=== PATIENT | female | born 1980 | race American Indian/Alaskan Native ===

== ENCOUNTER 2017-08-31 06:38 | Emergency (ER) | payer MEDICAID ==
--- NOTE | 2017-08-31 08:44 | Emergency Department Report ---
HPI - General Chief Complaint: Psych Time Seen by Provider: 08/31/17 08:17 - HPI HPI: This is a 37 year-old female presents to the emergency department, dropped off by a friend, with complaint of depression and suicidal ideations and questionable attempt. The patient says that she has the plan to cut her wrists and says that she started to do it last night. She shows a very small abrasion to the left volar wrist. She has a diagnosed history of depression and says that she is on antidepressants, but cannot currently remember the name. She says she is not taking it because "they do not work." There is no one particular thing that is causing her to feel depressed currently and it is just more general issues. She denies any homicidal ideation or any hallucinations. She says that she has been to an inpatient psychiatric facility in the past. ED Past Medical Hx - Past Medical History Hx Headaches / Migraines: Yes - Surgical History Hx Appendectomy: Yes Hx Breast Surgery: Yes (reduction) Additional Surgical History: x 3 - Social History Smoking Status: Current Every Day Smoker Substance Use Type: Alcohol - Medications Home Medications: Home Medications Medication Instructions Recorded Confirmed Last Taken Type No Known Home Medications [No 08/11/16 08/11/16 Unknown History Reported Home Medications] ED Review of Systems ROS: Stated complaint: SUICIDE Other details as noted in HPI Comment: All other systems reviewed and negative Constitutional: denies: chills, fever Eyes: denies: eye pain, eye discharge, vision change ENT: denies: ear pain, throat pain Respiratory: denies: cough, shortness of breath, wheezing Cardiovascular: denies: chest pain, palpitations Gastrointestinal: denies: abdominal pain, nausea, diarrhea Genitourinary: denies: urgency, dysuria, discharge Musculoskeletal: denies: back pain, joint swelling, arthralgia Skin: other (small left wrist abrasion). denies: rash, lesions Neurological: denies: headache, weakness, paresthesias Psychiatric: depression, suicidal thoughts. denies: auditory hallucinations, visual hallucinations, homicidal thoughts Physical Exam - Physical Exam Vital Signs: Vital Signs 08/31/17 07:53 Temperature 98.3 F Pulse Rate 91 H Respiratory 18 Rate Blood Pressure 141/90 O2 Sat by Pulse 99 Oximetry Physical Exam: GENERAL: The patient is well-developed well-nourished. HENT: Normocephalic. Atraumatic. Patient has moist mucous membranes. EYES: Extraocular motions are intact. Pupils equal reactive to light bilaterally. NECK: Supple. Trachea is midline. CHEST/LUNGS: Clear to auscultation. There is no respiratory distress noted. HEART/CARDIOVASCULAR: Regular. There is no tachycardia. There is no murmur. ABDOMEN: Abdomen is soft, nontender. Patient has normal bowel sounds. There is no abdominal distention. SKIN: Skin is warm and dry. NEURO: The patient is awake, alert, and oriented. The patient is cooperative. The patient has no focal neurologic deficits. Normal speech. MUSCULOSKELETAL: There is no tenderness or deformity. There is no limitation range of motion. There is no evidence of acute injury. PSYCH: Patient has a flat affect. ED Course Vital Signs 08/31/17 07:53 Temperature 98.3 F Pulse Rate 91 H Respiratory 18 Rate Blood Pressure 141/90 O2 Sat by Pulse 99 Oximetry ED Medical Decision Making - Lab Data Result diagrams: 08/31/17 08:36 08/31/17 08:36 - Medical Decision Making Patient has a blood alcohol level of 0.10 but at this point she will most likely be under legal limit. Rest of blood work has been unremarkable so far. We are waiting for a urinalysis and urine drug screen. Vital signs stable throughout her ED course thus far. Patient has been made a 1013 secondary to her depression and suicidal ideations. If there is any urinary tract infection on the patient were to come back , we will treat appropriately, but I do not feel that this would keep her from being medically cleared for psychiatric placement. - Differential Diagnosis depression, bipolar disorder, schizophrenia, substance abuse Critical Care Time: No Critical care attestation.: If time is entered above; I have spent that time in minutes in the direct care of this critically ill patient, excluding procedure time. ED Disposition Clinical Impression: Suicidal ideations Depression Qualifiers: Depression Type: unspecified Qualified Code(s): F32.9 - Major depressive disorder, single episode, unspecified Disposition: [id number]/TX-[id number] PSY HOSP/PSY UNIT Is pt being admited?: No Condition: Stable Referrals: TRACY ORDOÑEZ MD [Primary Care Provider] - 3-5 Days Time of Disposition: 11:36
[2017-08-31 09:08] LABS: BUN/Creatinine Ratio 4; Blood Urea Nitrogen 4 mg/dL (7-17); Calcium 9.3 mg/dL (8.4-10.2); Hemolysis Index 7
[2017-08-31 09:17] LABS: Basophils # (Auto) 0.1 K/mm3 (0.0-0.1); Basophils % (Auto) 0.9 % (0.0-1.8); Eosinophils # (Auto) 0.2 K/mm3 (0.0-0.4); Eosinophils % (Auto) 1.7 % (0.0-4.3); Hematocrit 40.3 % (30.3-42.9); Hemoglobin 12.6 gm/dl (10.1-14.3); Lymphocytes # (Auto) 4.3 K/mm3 (1.2-5.4); Mean Corpuscular HGB Conc 31 % (30-34); Mean Corpuscular Volume 79 fl (79-97); Monocytes # (Auto) 0.5 K/mm3 (0.0-0.8); Monocytes % (Auto) 5.3 % (0.0-7.3); Platelet Count 422 K/mm3 (140-440); Red Blood Count 5.09 M/mm3 (3.65-5.03)
[2017-08-31 09:18] LABS: Mean Corpuscular Hemoglobin 25 pg (28-32); Red Cell Distribution Width 21.8 % (13.2-15.2)
[2017-08-31 12:58] LABS: Bilirubin,Urine NEG (Negative); Blood,Urine NEG (Negative); Color,Urine Yellow (Yellow); Mucus,Urine 1+ /HPF; Nitrite,Urine NEG (Negative); Protein,Urine <15 mg/dL mg/dL (Negative); Urobilinogen,Urine < 2.0 mg/dL (<2.0)
[2017-08-31 12:59] LABS: HCG Qualitative,Urine Negative (Negative)
[2017-08-31 13:07] LABS: Amphetamine Screen,Urine PRESUMPTIVE NEGATIVE; Benzodiazepines Screen,Urine PRESUMPTIVE NEGATIVE; Cocaine Screen,Urine PRESUMPTIVE NEGATIVE; Methadone Screen,Urine PRESUMPTIVE NEGATIVE; Opiate Screen,Urine PRESUMPTIVE NEGATIVE
[2017-08-31 13:36] LABS: Cannabinoid Screen,Urine PRESUMPTIVE POSITIVE
[2017-09-01] MEDS ORDERED: TYLENOL PO ONE (00:15)
[2017-09-01] MEDS ORDERED: TYLENOL ONE (00:22)
--- NOTE | 2017-09-01 15:01 | Consultation ---
History of Present Illness - Reason for Consult Consult date: 09/01/17 Reason for consult: psychiatric evaluation - Chief Complaint Chief complaint: "I overdid the drinking." - History of Present Psychiatric Illness This is a 37 year-old female presents to the emergency department, dropped off by a friend, with complaint of depression and suicidal ideation and questionable attempt. She reports drinking excessively after a break up. She acknowledges that drinking was a poor decision. Per the ER record , she reported that she had the plan to cut her wrists and says that she started to do it. She currently denies suicidal ideation. She reports being ashamed she had those thoughts. She shows a very small abrasion to the left volar wrist. She has a diagnosed history of depression and says that she was taking celexa 20mg daily. She denies any homicidal ideation or any hallucinations. Medications and Allergies Allergies Allergy/AdvReac Type Severity Reaction Status Date / Time No Known Allergies Allergy Verified 08/11/16 16:53 Home Medications Medication Instructions Recorded Confirmed Last Taken Type No Known Home Medications [No 08/11/16 08/11/16 Unknown History Reported Home Medications] Past psychiatric history - Past Medical History Past Medical History: migraines, other (hard of hearing) Past Surgical History: , Other (breast reduction) - past Psychiatric treatment and history Psych: Depression psychiatric treatment history: She is not taking celexa x 2 weeks. She thought it was affecting her sleep. 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 - Social History Social history: other (she denies regular alcohol use. She denies illicit substance use.) Mental Status Exam - Vital signs Last Vital Signs Temp 99.0 F 08/31/17 19:05 Pulse 82 08/31/17 19:05 Resp 18 08/31/17 19:05 BP 104/71 08/31/17 19:05 Pulse Ox 98 08/31/17 19:05 - Exam Orientation: time, place, person Affect: depressed Mood: congruent with affect Thought content: other (denies suicidal or homicidal ideation) Thought Process: Intact Perceptions: none Speech: normal rate and pattern Concentration: focused Motor activity: normal Level of consciousness: alert Memory: Intact Sleep Symptoms: Difficulty Falling Asleep Appetite: decreased Interaction: cooperative Results Result Diagrams: 08/31/17 08:36 08/31/17 08:36 All other labs normal. Assessment and Plan Assessment and plan: Impression: major depressive disorder r/o alcohol use disorder r/o bipolar She denies current suicidal ideation. No withdrawal symptoms Recommendation: Attempts to reach her mother were unsuccessful. [phone] Hold off on restarting celexa. She is concerned about taking it and working. Reevaluate in 24 hours to determine suicide risk. Her initial presentation was likely influenced by the acute stressor of a break up and alcohol.
[2017-09-03 00:22] VITALS: BP 121/70
== END 2017-09-02 23:45 ==
LOC: EEVIPCON 06:38 → ED 06:38
DX: F32.9 Major depressive disorder, single episode, unspecified (principal); R45.851 Suicidal ideations; G43.909 Migraine, unspecified, not intractable, without status migrainosus; F17.200 Nicotine dependence, unspecified, uncomplicated
CPT/HCPCS: 36415; 80048; 80307; 81001; 81025; 85025; 99285; G0480; 80320